=== PATIENT | male | born 1935 | race Two or more races ===

== ENCOUNTER 2018-01-18 08:50 | Emergency (ER) | payer SELFPAY ==
[~2018-01-18] VITALS: Ht 175.3 cm; Wt 121.6 kg
--- NOTE | 2018-01-18 08:55 | NUR ---
PT GINA FROM HOME TO ER BED 07 C/O URINARY RETENSION AND PAIN FOR 5 HOURS NOW S/P CYSTOSCOPY. GOWNED AND PLACED ON MONITOR. AWAITING MD BUSTILLO.
--- NOTE | 2018-01-18 09:08 | NUR ---
DR MCKEON AT BEDSIDE FOR EVAL.
[2018-01-18] MEDS ORDERED: LIDOCAINE 2% JEL UROJET 10 ML MM ONE ×3 (09:10→09:43)
--- NOTE | 2018-01-18 10:05 | NUR ---
BACK AT BEDSIDE PT IS STANDING UP AND PULLED HIS GUILLEN CATHETER OUT. CLOTS AND BLOOD TINGED URINE NOTED. PT STATES I FEEL BETTER NOW AND I DONT FEEL PAIN. "I NEED TO GO TO MY UROLOGIST." DR MCKEON AWARE.
--- NOTE | 2018-01-18 10:40 | NUR ---
UNABLE TO INSERT A NEW F/C. PT STATING "ITS TOO PAINFUL." "NO MORE." DR MCKEON MADE AWARE.
[2018-01-18 11:12] LABS: BASOPHILS % (AUTO) 0.4 % (0.0-2.0); EOSINOPHILS % (AUTO) 1.1 % (0.0-6.0); HEMATOCRIT 30 % (39-51); LYMPHOCYTES % (AUTO) 24.8 % (20.0-44.0); MEAN CORPUSCULAR HGB CONC 33 g/dl (31.0-36.0); MEAN CORPUSCULAR VOLUME 98 fL (80-96); MONOCYTES # (AUTO) 1.7 /CMM (0.1-1.30); MONOCYTES % (AUTO) 14.1 % (2.0-12.0); NEUTROPHILS # (AUTO) 7.3 /CMM (1.8-8.9); NEUTROPHILS % (AUTO) 59.6 % (43.0-81.0); PLATELET COUNT (AUTO) 260 /CMM (150-450); RDW COEFFICIENT OF VARIATION 16.7 (11.5-15.0); RED BLOOD CELL COUNT(AUTO) 3.09 MIL/uL (4.5-6.0); WHITE BLOOD COUNT (AUTO) 12.1 K/uL (4.3-11.0)
[2018-01-18 11:21] LABS: CALCIUM, SERUM 9.2 mg/dL (8.5-10.1); CARBON DIOXIDE 18 mmol/L (21-32); CHLORIDE 104 mmol/L (98-107); CREATININE 2.1 mg/dL (0.6-1.3); GLUCOSE 285 mg/dL (74-106); POTASSIUM 3.6 mmol/L (3.5-5.1); SODIUM SERUM 139 mmol/L (136-145); UREA NITROGEN, BLOOD 38 mg/dL (7-18)
[2018-01-18 11:25] LABS: INR 0.93 (0.85-1.15)
[2018-01-18] MEDS ORDERED: GLIP5TAB13 PO (12:14)
[2018-01-18] MEDS ORDERED: BENA1TAB72 PO (12:14)
--- NOTE | 2018-01-18 12:14 | NUR ---
CALLED [facility] FOR PANEL CALL AND DR CARLSON WAS PAGED
--- NOTE | 2018-01-18 12:35 | NUR ---
PT IS ASSIGNED TO [facility]#: [id number], DX: URINARY RETENTION, AND ACCEPTING: DANA AGUIAR NP
--- NOTE | 2018-01-18 12:40 | NUR ---
REPORT GIVEN TO UNIQUE. PT AWAITING TRANSFER TO FLOOR.
--- NOTE | 2018-01-18 12:46 | NUR ---
PT'S AT BEDSIDE NOW DECIDING THAT THEY WANT TO GO STRAIGHT TO HIS UROLOGIST AT [facility]. DR MCKEON MADE AWARE. Addendum: 01/18/18 at 1252 by JETHRO PER PT, ITS NOR HER THATS PICKING HIM UP BUT A NEIGHBOR. PT SIGNED OUT AGAINST [facility].
[2018-01-18 12:53] VITALS: BP 152/99
== END 2018-01-18 12:54 | disposition left against medical advice (07) ==
LOC: ER 08:54
DX: R33.9 Retention of urine, unspecified (principal); R31.0 Gross hematuria; I10 Essential (primary) hypertension; E11.9 Type 2 diabetes mellitus without complications
CPT/HCPCS: 36415; 51702; 80048; 85025; 85730; 87081; 99285; A4217; A4606; J3490 ×2; Z7610

== ENCOUNTER 2018-08-21 06:36 | Emergency (ER) | payer OTHER ==
[~2018-08-21] VITALS: Ht 182.9 cm; Wt 95.7 kg
[~2018-08-21 06:36] MED LIST: BENA1TAB72 PO; GLIP5TAB13 PO
[2018-08-21] MEDS ORDERED: SODIUM BICARBONATE SYR 50 MEQ/50 ML DISP.SYRIN IV ONE (06:39)
[2018-08-21] MEDS ORDERED: ROCURONIUM BROMIDE 50 MG/5 ML IV ONE (06:39)
[2018-08-21] MEDS ORDERED: EPINEPHRINE (1:10,000) SYRINGE 1 MG/10 ML DISP.SYRIN IVP ONE (06:39)
[2018-08-21] MEDS ORDERED: CALCIUM CHLORIDE 1,000 MG/10 ML DISP.SYRIN IV ONE (06:39)
[2018-08-21] MEDS ORDERED: ETOMIDATE 2 MG/ML VIAL IV ONE (06:39)
--- NOTE | 2018-08-21 06:53 | NUR ---
SPOKE TO BEN (POSung) [phone], ON HIS WAY HERE FROM [facility]
--- NOTE | 2018-08-21 06:55 | NUR ---
RT RECD PT ALTERED BROUGHT BY RESCUE, CPR INITIATED INTUBATED BY MD MEMBRENO WITH 7.5 ETT AT 24 CM AT LIP LINE SECUREDE EC02 COLOR CHANGE, EQUAL BILATERAL CHEST RISE UPON BAGGING. PT
--- NOTE | 2018-08-21 07:06 | NUR ---
0640 ARRIVAL TO ER 0642 CPR INITIATED, PEA 0643 EPI, PEA 0644 INTUBATED ETT 7.5 24CM AT THE LIP 0646 EPI, PEA 0648 BICARB X1 AMP 0649 CALCIUM CHLORIDE 0649 EPI, PEA 0653 EPI, PEA 0656 EPI, PEA 0657 TIME OF
--- NOTE | 2018-08-21 07:22 | NUR ---
"CH[facility]O" AFTER [facility]. ETA 1:30-2HRS. INFORMATION GIVEN ABOUT PT CONDITION AND TIME OF . POWER OF ADULT CAREGIVER AWARE AND CALL WAS MADE PER REQUEST.
--- NOTE | 2018-08-21 07:58 | NUR ---
NOT A PARK AIDE'S CASE PER RIRI
[2018-08-21 08:58] VITALS: BP 79/32
== END 2018-08-21 09:00 ==
LOC: ER 06:38
DX: I46.9 Cardiac arrest, cause unspecified (principal); Z85.51 Personal history of malignant neoplasm of bladder
CPT/HCPCS: 31500; 92950; 99285; J0171; J3490 ×3